=== PATIENT | male | born 1990 | race Two or more races ===

== ENCOUNTER 2018-06-30 07:49 | Emergency (ER) | payer MEDICAID ==
[~2018-06-30] VITALS: Ht 177.8 cm; Wt 117.9 kg
[2018-06-30] MEDS ORDERED: SODIUM CHLORIDE 0.9% 1,000 ML IV ONE ×2 (08:46)
[2018-06-30] MEDS ORDERED: DOPamine 1600MCG/ML D5W 250 ML IV ONE (09:00)
[2018-06-30] MEDS ORDERED: IOHEXOL 350 MG/ML 100ML IJ ONE (09:27)
[2018-06-30] MEDS ORDERED: ETOMIDATE (2MG/ML) 20ML VIAL IV ONE (10:30)
[2018-06-30] MEDS ORDERED: SUCCINYLCHOLINE CHLORIDE 20 MG/ML 10ML VIAL IV ONE (10:30)
[2018-06-30 10:36] LABS: Basophils # (auto) 0 uL; Basophils % (auto) 0.2 % (0.0-2.0); Eosinophils # (auto) 0.1 uL; Eosinophils % (auto) 0.5 % (0.0-7.0); Hematocrit 49.5 % (41.0-53.0); Hemoglobin 16.5 g/dL (13.5-17.5); Lymphocytes # (auto) 2.1 uL; Lymphocytes % (auto) 18.3 % (10.0-50.0); Mean Corpuscular Hemoglobin 30.2 pg (28.0-32.0); Mean Corpuscular Hgb Conc. 33.4 g/dL (32.0-36.0); Mean Corpuscular Volume 90.5 fL (80.0-100.0); Monocytes # (auto) 0.8 uL; Monocytes % (auto) 6.8 % (0.0-12.0); Neutrophils # (auto) 8.4 uL; Neutrophils % (auto) 74.2 % (37.0-80.0); Nucleated Red Blood Cells % 0.1 %; Platelet Count (auto) 270 10^3/uL (140-450); Red Blood Cells 5.47 10^6/uL (4.5-5.90); Red Cell Distribution Width 13.2 % (11.8-14.3); White Blood Cell 11.3 10^3/uL (4.4-10.8)
[2018-06-30] MEDS: MIDAZOLAM DRIP 50 mg/50mL 50 ML IV SCH ×3 (10:39→13:01)
[2018-06-30] MEDS ORDERED: PROPOFOL 100 ML IV SCH (10:39)
[2018-06-30] MEDS ORDERED: PROPOFOL 100 ML IV ONE (10:40)
[2018-06-30 10:43] LABS: Urine WBC None Seen /hpf (0 - 3)
[2018-06-30 10:49] LABS: INR 0.94 (0.9-1.15); Partial Thromboplastin Time 25.1 sec (23.78-33.04); Prothrombin Time 10.1 sec (9.27-12.13)
[2018-06-30] MEDS ORDERED: LORazepam 2MG/ML-1ML VIAL ONE (10:49)
[2018-06-30 10:56] LABS: Calcium 8.7 mg/dL (8.5-10.1); Potassium 3.7 mmol/L (3.5-5.1)
[2018-06-30 10:58] LABS: BUN/Creatinine Ratio 9.8
[2018-06-30] MEDS ORDERED: LORazepam 2MG/ML-1ML VIAL IV ONE (11:00)
[2018-06-30] MEDS ORDERED: LEVETIRACETAM INJ 1,000 MG in D5W 5% 100 ML IV ONE (11:00)
[2018-06-30 11:01] LABS: Bilirubin, Total 0.3 mg/dL (0.2-1.0)
[2018-06-30 11:03] LABS: Blood Alcohol < 3.0 mg/dL (0-5)
[2018-06-30] MEDS ORDERED: MIDAZOLAM HCL 5 MG/ML-1ML VIAL ONE (11:03)
[2018-06-30 11:06] LABS: Urine Bacteria NONE SEEN /hpf (None Seen); Urine Blood Negative /uL (Negative); Urine Specific Gravity 1.025 (1.001-1.035)
[2018-06-30 11:09] LABS: Alcohol, Urine < 3.0 mg/dL (0-5); Amphetamine Screen, Urine NEGATIVE (NEGATIVE); Barbiturate Scree,Urine NEGATIVE (NEGATIVE); Benzodiazephine Screen, Urine NEGATIVE (NEGATIVE); Cannabinoid Screen, Urine POSITIVE (NEGATIVE); Cocaine Screen, Urine NEGATIVE (NEGATIVE); Opiate Scree,Urine NEGATIVE (NEGATIVE); Phencyclidine Screen, Urine NEGATIVE (NEGATIVE)
[2018-06-30] MEDS ORDERED: MIDAZOLAM HCL 5 MG/ML-1ML VIAL IV ONE (11:15)
[2018-06-30] MEDS ORDERED: NOREPINEPHRINE 8 MG/250ML KIT 250 ML IV ONE (11:30)
[2018-06-30] MEDS ORDERED: NOREPINEPHRINE 8 MG/250ML KIT 250 ML IV SCH (11:45)
[2018-06-30 13:22] VITALS: BP 105/55
== END 2018-06-30 13:42 | disposition short-term general hospital (02) ==
LOC: ER 07:49 → EDBD 07:49 → ER 13:42
DX: S06.6X9A Traumatic subarachnoid hemorrhage with loss of consciousness of unspecified duration, initial encounter (principal); G93.41 Metabolic encephalopathy; R00.1 Bradycardia, unspecified; F12.90 Cannabis use, unspecified, uncomplicated; W18.39XA Other fall on same level, initial encounter; Y93.89 Activity, other specified; Y99.8 Other external cause status; Y92.89 Other specified places as the place of occurrence of the external cause
CPT/HCPCS: 31500; 36415; 36556; 36600; 51702; 70450; 71045; 71260; 74177; 80053; 80307; 80320; 81001; 82805; 82962; 83880; 84484; 85025; 85610; 85730; 87070; 87205; 93005; 96365; 96375; 99291; J0330; J1265; J1953; J2060; J2250; J2704; J7030; J7060; Q9967; 94002